=== PATIENT | female | born 1960 | race Caucasian/White ===

== ENCOUNTER → 2018-07-13 | Outpatient (CLI) | payer OTHER ==
[~2018-07-13] MED LIST: None per pt
[2018-07-13 11:05] LABS: BASOPHILS # (AUTO) 0.06 x10^3/uL (0-0.1); BASOPHILS % (AUTO) 1 % (0-1); EOSINOPHILS # (AUTO) 0.13 x10^3/uL (0-0.4); EOSINOPHILS % (AUTO) 1 % (1-7); LYMPHOCYTES # (AUTO) 2.65 x10^3/uL (1-3.4); LYMPHOCYTES % (AUTO) 20 % (22-44); MD NO; MEAN CORPUSCULAR HEMOGLOBIN 33.3 pg (27.0-34.8); MEAN CORPUSCULAR HGB CONC 35.1 g/dL (32.4-35.8); MEAN CORPUSCULAR VOLUME 95.1 fL (80-100); MEAN PLATELET VOLUME 10.1 fL (7.4-10.4); MONOCYTES # (AUTO) 0.69 x10^3/uL (0.2-0.8); MONOCYTES % (AUTO) 5 % (2-9); NEUTROPHILS # (AUTO) 9.52 x10^3/uL (1.8-6.8); NEUTROPHILS % (AUTO) 73 % (42-75); PLATELET COUNT 223 x10^3/uL (130-400); RED BLOOD COUNT 4.11 x10^6/uL (3.82-5.3); RED CELL DISTRIBUTION WIDTH 13.1 % (9.6-15.2)
[2018-07-13 11:17] LABS: ALBUMIN 3.5 g/dL (3.4-5.0); ANION GAP 11 mmol/L (5-15); CALCIUM 9.7 mg/dL (8.5-10.1); CHLORIDE 102 mmol/L (98-107)
[2018-07-13 11:20] LABS: ALANINE AMINOTRANSFERASE 29 U/L (12-78); ALKALINE PHOSPHATASE 134 U/L (45-117); BILIRUBIN,TOTAL 0.5 mg/dL (0.2-1.0); CREATININE 1.08 mg/dL (0.55-1.02)
[2018-07-13 12:17] LABS: PROTHROMBIN TIME 10.4 Seconds (9.6-11.5)
== END | disposition home or self-care (01) ==
LOC: STAR 09:20
PROVIDERS: ATTEND Specialist
DX: Z01.818 Encounter for other preprocedural examination (principal); C54.1 Malignant neoplasm of endometrium
CPT/HCPCS: 36415; 71046; 80053; 85025; 85610; 85730; 86304; 93005

== ENCOUNTER 2018-07-19 05:38 | Day surgery (SDC) | payer OTHER ==
[~2018-07-19] VITALS: Ht 167.6 cm; Wt 68.8 kg
[2018-07-19] MEDS ORDERED: LACTATED RINGERS 1,000 ML IV SCH (06:09)
[2018-07-19 06:22] VITALS: BP 144/84
[2018-07-19] MEDS ORDERED: FENTANYL PF 250 MCG/5ML ONE (06:56)
[2018-07-19] MEDS ORDERED: LIDOCAINE-MPF 2% ,5ML ONE (06:56)
[2018-07-19] MEDS ORDERED: SUCCINYLCHOLINE 20 MG/ML, 10ML ONE (06:56)
[2018-07-19] MEDS ORDERED: PROPOFOL 10 MG/ML, 20ML ONE (06:56)
[2018-07-19] MEDS ORDERED: ROCURONIUM 10MG/ML,5ML ONE (06:56)
[2018-07-19] MEDS ORDERED: MIDAZOLAM 1 MG/ML, 2ML ONE (06:56)
[2018-07-19] MEDS ORDERED: DEXAMETHASONE 4 MG/ML, 1ML ONE ×2 (06:57)
[2018-07-19] MEDS ORDERED: CEFAZOLIN 1,000 MG ONE ×2 (06:57)
[2018-07-19] MEDS ORDERED: PHENYLEPHRINE 10 MG/ML ONE (06:57)
[2018-07-19] MEDS ORDERED: GABAPENTIN 300 MG CAPSULE PO ONE (07:00)
[2018-07-19] MEDS ORDERED: ACETAMINOPHEN 500 MG TABLET PO ONE (07:00)
[2018-07-19] MEDS ORDERED: ONDANSETRON ODT 8 MG PO ONE (07:00)
[2018-07-19] MEDS ORDERED: ALBUTEROL SULFATE 2.5 MG/3 ML NPPB PRN (07:30)
[2018-07-19] MEDS ORDERED: EPHEDRINE 50 MG/ML, 1ML IVPush PRN (07:30)
[2018-07-19] MEDS ORDERED: LORazepam 2 MG/ML, 1ML IVPush PRN (07:30)
[2018-07-19] MEDS ORDERED: hydrALAzine 20 MG/ML, 1ML IV PRN (07:30)
[2018-07-19] MEDS ORDERED: DIPHENHYDRAMINE 50 MG/ML, 1ML IVPush PRN (07:30)
[2018-07-19] MEDS ORDERED: DIAZEPAM 5 MG/ML, 2ML IVPush PRN (07:30)
[2018-07-19] MEDS ORDERED: METOPROLOL 1 MG/ML, 5ML IV PRN (07:30)
[2018-07-19] MEDS ORDERED: MIDAZOLAM 1 MG/ML, 2ML IV PRN (07:30)
[2018-07-19] MEDS ORDERED: LABETALOL 5MG/ML, 20ML IV PRN (07:30)
[2018-07-19] MEDS ORDERED: METOCLOPRAMIDE 5 MG/ML, 2ML IV PRN (07:30)
[2018-07-19] MEDS ORDERED: MORPHINE SULFATE 4 MG/ML, 1ML IVPush PRN (07:30)
[2018-07-19] MEDS ORDERED: PROCHLORPERAZINE 5 MG/ML, 2ML IV PRN (07:30)
[2018-07-19] MEDS ORDERED: OXYcodone 5 MG/5 ML ORAL.SOL UDC PO PRN (07:30)
[2018-07-19] MEDS ORDERED: MEPERIDINE/PF 25MG/0.5ML IVPush PRN (07:30)
[2018-07-19] MEDS ORDERED: INDOCYANINE GREEN 25 MG VIAL ONE (08:09)
[2018-07-19] MEDS ORDERED: FENTANYL PF 100 MCG/2ML ONE (11:36)
[2018-07-19] MEDS ORDERED: OXYcodone 5 MG/5 ML ORAL.SOL UDC ONE (11:38)
[2018-07-19] MEDS: FENTANYL PF 100 MCG/2ML IV PRN ×2 (11:38→11:52)
[2018-07-19] MEDS ORDERED: HYDROmorphone 2 MG/ML, 1ML ONE (11:54)
[2018-07-19] MEDS: HYDROmorphone 1 MG/ML, 1ML IV PRN ×5 (11:57→12:48)
[2018-07-19] MEDS ORDERED: KETOROLAC 30 MG/1 ML ONE (12:11)
[2018-07-19] MEDS ORDERED: KETOROLAC 30 MG/1 ML IVPush SCH (12:30)
[2018-07-19] MEDS ORDERED: KETOROLAC 30 MG/1 ML IVPush ONE (12:30)
[2018-07-19] MEDS ORDERED: OXYcodone/APAP 7.5/325MG TABLET PO ONE (16:00)
== END 2018-07-19 15:40 | disposition home or self-care (01) ==
LOC: OUT 05:38
PROVIDERS: ATTEND Specialist
DX: C54.1 Malignant neoplasm of endometrium (principal); N95.0 Postmenopausal bleeding; R59.1 Generalized enlarged lymph nodes; F17.210 Nicotine dependence, cigarettes, uncomplicated; I25.10 Atherosclerotic heart disease of native coronary artery without angina pectoris; E11.9 Type 2 diabetes mellitus without complications; Z98.890 Other specified postprocedural states; Z98.51 Tubal ligation status; Z72.89 Other problems related to lifestyle; Z86.718 Personal history of other venous thrombosis and embolism
CPT/HCPCS: 36415; 38572; 58571; 74018; 82962; 86850; 86900; 86923; 88112; 88305; 88307; 88331; 88333; J0330; J0690; J1100; J1170; J1885; J2250; J2370; J2704; J3010; J3490; J7120; Q0162; S2900

== ENCOUNTER → 2018-11-02 | Outpatient (CLI) | payer OTHER | END | disposition home or self-care (01) | LOC: ROC 07:20 | PROVIDERS: ATTEND Radiology Radiation Oncology | DX: C54.1 Malignant neoplasm of endometrium (principal); R91.8 Other nonspecific abnormal finding of lung field | CPT/HCPCS: 99214; G0463 ==

== ENCOUNTER 2019-01-05 11:52 | Emergency (ER) | payer OTHER ==
[~2019-01-05] VITALS: Ht 167.6 cm; Wt 58.0 kg
[~2019-01-05 11:52] MED LIST changes: +ONDA4TAB7 PO
[2019-01-05 12:45] LABS: BASOPHILS % (AUTO) 0 % (0-1); EOSINOPHILS # (AUTO) 0.03 x10^3/uL (0-0.4); EOSINOPHILS % (AUTO) 1 % (1-7); LYMPHOCYTES # (AUTO) 0.86 x10^3/uL (1-3.4); LYMPHOCYTES % (AUTO) 17 % (22-44); MD NO; MEAN CORPUSCULAR HGB CONC 33.9 g/dL (32.4-35.8); MEAN CORPUSCULAR VOLUME 94.4 fL (80-100); MEAN PLATELET VOLUME 8.1 fL (7.4-10.4); MONOCYTES # (AUTO) 0.59 x10^3/uL (0.2-0.8); MONOCYTES % (AUTO) 12 % (2-9); NEUTROPHILS # (AUTO) 3.67 x10^3/uL (1.8-6.8); NEUTROPHILS % (AUTO) 71 % (42-75); PLATELET COUNT 196 x10^3/uL (130-400); RED BLOOD COUNT 3.59 x10^6/uL (3.82-5.3); RED CELL DISTRIBUTION WIDTH 16.8 % (9.6-15.2)
--- NOTE | 2019-01-05 12:50 | NUR ---
PT AMBULATED TO ROOM FROM LOBBY WITH STEADY GAIT.
[2019-01-05 12:54] LABS: ALBUMIN 3.2 g/dL (3.4-5.0); ANION GAP 5 mmol/L (5-15); CALCIUM 8.9 mg/dL (8.5-10.1); CHLORIDE 104 mmol/L (98-107)
[2019-01-05 13:00] LABS: CREATININE 1.25 mg/dL (0.55-1.02); TROPONIN I < 0.015 ng/mL (0.000-0.045)
--- NOTE | 2019-01-05 13:34 | NUR ---
CT WAITING FOR IV ACCESS
--- NOTE | 2019-01-05 14:18 | NUR ---
PT BACK FROM CT.
[2019-01-05] MEDS ORDERED: OMNIPAQUE 350 MG/ML, 100ML BOTTLE ONE (14:29)
[2019-01-05 15:31] VITALS: BP 143/66
== END 2019-01-05 15:35 | disposition home or self-care (01) ==
LOC: ED 14:22
DX: R55 Syncope and collapse (principal); N28.1 Cyst of kidney, acquired; R42 Dizziness and giddiness; R09.81 Nasal congestion; Z86.718 Personal history of other venous thrombosis and embolism
CPT/HCPCS: 36415; 71275; 80048; 82040; 83880; 84484; 85025; 93005; 99284; Q9967

== ENCOUNTER → 2019-01-31 | Outpatient (CLI) | payer OTHER | END | disposition home or self-care (01) | LOC: ROC 08:00 | PROVIDERS: ATTEND Radiology Radiation Oncology | DX: C54.1 Malignant neoplasm of endometrium (principal) | CPT/HCPCS: 99213; G0463 ==

== ENCOUNTER → 2019-02-08 | Outpatient (CLI) | payer OTHER | END | disposition home or self-care (01) | LOC: CFH 09:58 | PROVIDERS: ATTEND Radiology Radiation Oncology | DX: N28.89 Other specified disorders of kidney and ureter (principal); Z85.42 Personal history of malignant neoplasm of other parts of uterus | CPT/HCPCS: 74181 ==

== ENCOUNTER → 2019-11-07 | Outpatient (CLI) | payer OTHER | END | disposition home or self-care (01) | LOC: CFH 10:30 | PROVIDERS: ATTEND Radiology Radiation Oncology | DX: Z12.31 Encounter for screening mammogram for malignant neoplasm of breast (principal) | CPT/HCPCS: 77063; 77067 ==

== ENCOUNTER → 2019-11-11 | Outpatient (CLI) | payer OTHER | END | disposition home or self-care (01) | LOC: ROC 10-07 08:05 | PROVIDERS: ATTEND Radiology Radiation Oncology | DX: C54.9 Malignant neoplasm of corpus uteri, unspecified (principal) | CPT/HCPCS: 99212; G0463 ==